=== PATIENT | female | born 1990 | race Caucasian/White ===

== ENCOUNTER 2017-10-22 18:31 | Emergency (ER) | payer MEDICAID, OTHER ==
[~2017-10-22] VITALS: Ht 165.1 cm; Wt 75.6 kg
[~2017-10-22 18:31] MED LIST: HYDR-569 PO; NAPR500T4 PO
[2017-10-22 18:38] VITALS: BP 119/65
[2017-10-22] MEDS ORDERED: PENI500T2 PO (19:48)
[2017-10-22] MEDS ORDERED: LIDOcaine 1.5% w/epinephrine 1:200,000 5ml ampul IJ ONE (19:50)
== END 2017-10-22 20:33 | disposition home or self-care (01) ==
LOC: ER 18:31
DX: K08.89 Other specified disorders of teeth and supporting structures (principal); F17.200 Nicotine dependence, unspecified, uncomplicated
CPT/HCPCS: 41800; 99283; A6449; J3490

== ENCOUNTER 2018-03-07 18:23 | Emergency (ER) | payer OTHER ==
[~2018-03-07] VITALS: Ht 165.1 cm; Wt 66.0 kg
[~2018-03-07 18:23] MED LIST changes: +NAPR-996 PO; -NAPR500T4 PO
[2018-03-07 18:32] VITALS: BP 104/84
== END 2018-03-07 22:59 | disposition left against medical advice (07) ==
LOC: ER 18:23
DX: K08.89 Other specified disorders of teeth and supporting structures (principal); Z53.21 Procedure and treatment not carried out due to patient leaving prior to being seen by health care provider

== ENCOUNTER 2018-04-23 05:14 | Emergency (ER) | payer MEDICAID, OTHER ==
[~2018-04-23] VITALS: Ht 165.1 cm; Wt 81.9 kg
[2018-04-23] MEDS ORDERED: AMOX-101 PO (05:35)
[2018-04-23 05:53] VITALS: BP 138/79
== END 2018-04-23 05:55 | disposition home or self-care (01) ==
LOC: ER 05:14
DX: S01.512A Laceration without foreign body of oral cavity, initial encounter (principal); K03.1 Abrasion of teeth; X58.XXXA Exposure to other specified factors, initial encounter; Y93.89 Activity, other specified; Y92.89 Other specified places as the place of occurrence of the external cause; Y99.8 Other external cause status; Z86.14 Personal history of Methicillin resistant Staphylococcus aureus infection; Z79.899 Other long term (current) drug therapy
CPT/HCPCS: 99283

== ENCOUNTER 2018-06-27 18:52 | Emergency (ER) | payer MEDICAID, OTHER ==
[~2018-06-27] VITALS: Ht 165.1 cm; Wt 77.8 kg
[~2018-06-27 18:52] MED LIST changes: +HYDR-4383 PO; -HYDR-569 PO
[2018-06-27 18:58] VITALS: BP 120/57
[2018-06-27 21:52] LABS: MONOTEST NEGATIVE (Neg)
[2018-06-27] MEDS ORDERED: CefTRIAXone 250MG IM Kit w/LIDOcaine IM ONE (21:55)
[2018-06-27] MEDS ORDERED: azithromycin 250mg tablet PO ONE (21:55)
== END 2018-06-27 23:04 | disposition home or self-care (01) ==
LOC: ER 18:53
DX: J02.9 Acute pharyngitis, unspecified (principal); Z98.890 Other specified postprocedural states
CPT/HCPCS: 36415; 86308; 87081; 87880; 96372; 99284; J0696